=== PATIENT | female | born 1950 | race Caucasian/White ===

== ENCOUNTER → 2017-02-04 | Outpatient (CLI) | payer MEDICARE ==
[2016-02-13 15:09] VITALS: BP 118/84
[~2017-02-04] MED LIST: ATOR10TA60 PO; CARV12.5 PO; CELE200C PO; CITA20TA5 PO; FERR-36 PO; HYDR200T PO; LOSA100T6 PO; NAPR500T3 PO; NITR100C PO; PANT40TA5 PO; SUCR1TAB PO; WARF-78 PO
--- NOTE | 2017-02-04 14:35 | KCIC ---
MR of the left shoulder Indication: Left shoulder pain. Adjacent capsulitis. Pain for over one year. No known injury. Technique: Standard multiplanar sequences are obtained. Findings: Mild motion degradation despite repeating sequences. Acromioclavicular joint: Mild degenerative spurring. Rotator cuff: Full thickness tear of the anterior supraspinatus tendon measures about 15 mm AP diameter with 15 mm retraction. Partial tearing through the undersurface of the posterior supraspinatus through infraspinatus tendon. Partial subscapularis tendon tear. Mild fluid in the subdeltoid bursa. Fluid: Mild glenohumeral joint effusion. Labrum: Faint signal within the superior labrum but no clear-cut labral detachment. Articular cartilage: No acute cartilage defect or advanced DJD. Biceps tendon: Tendinosis with mild partial tearing. Bones: No lesion or acute fracture. Soft tissue: No acute findings. Impression: 1. Moderate full-thickness retracted supraspinatus tendon tear. Partial subscapularis tendon tear. 2. Biceps tendinosis. 3. Superior labral degeneration. Electronically signed by: Arnav Godinez MD (02/04/2017 2:32 PM)
== END | disposition home or self-care (01) ==
LOC: KCIC MRI 12:59
PROVIDERS: ATTEND Internal Medicine Rheumatology
DX: M75.02 Adhesive capsulitis of left shoulder (principal)
CPT/HCPCS: 73221

== ENCOUNTER → 2017-06-14 | Outpatient (CLI) | payer MEDICARE ==
[2016-02-13 15:09] VITALS: BP 118/84
[~2017-06-14] MED LIST changes: -NAPR500T3 PO; +NAPR500T4 PO
--- NOTE | 2017-06-14 14:45 | RAD ---
DATE: 06/14/2017 EXAM: DIGITAL SCREEN BILAT W/CAD HISTORY: History of benign right breast biopsy. Astigmatic screening mammogram. COMPARISON: Prior mammogram from 06/02/2015 This study was interpreted with the benefit of Computerized Aided Detection (CAD). The breast parenchyma shows scattered fibroglandular densities. Breast parenchyma level B. FINDINGS: Bilateral CC and MLO views of the breasts were performed. Right breast: There is a focal asymmetry in the upper outer right breast at posterior depth. Recommend additional imaging to include spot compression CC and MLO views of the right breast as well as possible ultrasound. Recommend placing scar marker if a scar is present. Left breast: There are no suspicious microcalcifications, masses or areas of architectural distortion. Left mammogram stable from prior mammogram. IMPRESSION: 1. Incomplete right mammogram. Additional views are recommended, as detailed above. 2. Negative left mammogram. BI-RADS CATEGORY: 0 INCOMPLETE: NEEDS ADDITIONAL IMAGING EVALUATION AND/OR PRIOR MAMMOGRAMS FOR COMPARISON. RECOMMENDED FOLLOW-UP: ADD ADDITIONAL IMAGING PQRS compliance statement: Mammography is a sensitive method for finding small breast cancers, but it does not detect them all and is not a substitute for careful clinical examination. A negative mammogram does not negate a clinically suspicious finding and should not result in delay in biopsying a clinically suspicious abnormality. "Our facility is accredited by the [employer] Mammography Program."
== END | disposition home or self-care (01) ==
LOC: MAMMO 14:14
PROVIDERS: ATTEND Internal Medicine
DX: Z12.31 Encounter for screening mammogram for malignant neoplasm of breast (principal)
CPT/HCPCS: G0202; 77067

== ENCOUNTER → 2017-06-21 | Outpatient (CLI) | payer MEDICARE ==
[2016-02-13 15:09] VITALS: BP 118/84
--- NOTE | 2017-06-21 11:43 | RAD ---
DATE: 06/21/2017 EXAM: DIGITAL DIAGNOSTIC RT, BREAST RIGHT HISTORY: Suspicious screening study COMPARISON: 06/14/2017 This study was interpreted with the benefit of Computerized Aided Detection (CAD). The breast parenchyma shows scattered fibroglandular densities. Breast parenchyma level B. FINDINGS: Reported there has been chest surgery since the old exam of 06/02/2015 with surgical scars projected over the upper outer quadrant of the right breast. Skin markers were placed along the areas of scarring prior to obtaining additional views. Spot compression and straight medial lateral views were obtained today. They confirm the presence of a ill-defined superficial opacity in the upper outer quadrant near the most posterior area of scarring. This small density measures approximately 1 cm. No suspicious microcalcifications are seen in this region. Right breast ultrasound, 06/21/2017: A targeted ultrasound of the area of clinical concern was performed at the 10:00 location, approximately 9 cm from the nipple. Just deep to the skin surface there is an ill-defined area of increased echogenicity measuring approximately 5 x 6 x 8 mm. There is no significant posterior acoustic enhancement or shadowing. This is not the typical appearance of a breast malignancy. In view of the history of recent surgery in this region, this most likely represents a scar or area of fat necrosis. No other abnormality is seen in this region. IMPRESSION: Small mammographic and sonographic abnormality related to an area of previous surgery, most likely representing scarring or fat necrosis. Clinical surveillance as well as mammographic and sonographic follow-up in 4-6 months is suggested to confirm stability. BI-RADS CATEGORY: 3 PROBABLY BENIGN FINDING(S)-SHORT INTERVAL FOLLOW-UP SUGGESTED RECOMMENDED FOLLOW-UP: 6M 6 MONTH FOLLOW-UP PQRS compliance statement: Patient information was entered into a reminder system with a target due date for the next mammogram. Mammography is a sensitive method for finding small breast cancers, but it does not detect them all and is not a substitute for careful clinical examination. A negative mammogram does not negate a clinically suspicious finding and should not result in delay in biopsying a clinically suspicious abnormality. "Our facility is accredited by the [employer] Mammography Program."
== END | disposition home or self-care (01) ==
LOC: MAMMO 10:17
PROVIDERS: ATTEND Internal Medicine
DX: R92.8 Other abnormal and inconclusive findings on diagnostic imaging of breast (principal)
CPT/HCPCS: 76641; G0206; 77065

== ENCOUNTER → 2018-03-15 | Outpatient (CLI) | payer MEDICARE | END | disposition home or self-care (01) | LOC: MAMMO 08:55 | DX: R92.8 Other abnormal and inconclusive findings on diagnostic imaging of breast (principal); I10 Essential (primary) hypertension; E78.2 Mixed hyperlipidemia; E11.9 Type 2 diabetes mellitus without complications; Z96.653 Presence of artificial knee joint, bilateral; Z87.11 Personal history of peptic ulcer disease; Z90.89 Acquired absence of other organs | CPT/HCPCS: 76641; 77065; G0279 ==

== ENCOUNTER → 2019-03-21 | Outpatient (CLI) | payer MEDICARE ==
[2016-02-13 15:09] VITALS: BP 118/84
[~2019-03-21] MED LIST changes: -CITA20TA5 PO; +CITA20TA6 PO; -HYDR200T PO; +HYDR200T71 PO; +LOSA100T14 PO; -LOSA100T6 PO; +NAPR-514 PO; -NAPR500T4 PO; -PANT40TA5 PO; +PANT40TA77 PO
--- NOTE | 2019-03-21 10:21 | RAD ---
DATE: March 21, 2019 EXAM: MAMMO [facility] HISTORY: Right breast nodules. COMPARISON: June 14, 2017 and March 15, 2018. This study was interpreted with the benefit of Computerized Aided Detection (CAD). 2-D digital mammographic views of both breasts were performed in the CC and MLO projections. 3-D digital tomosynthesis images of both breasts were performed in the CC and MLO projections and reviewed on a computer workstation. FINDINGS: Breast Density: SCATTERED The breast parenchyma shows scattered fibroglandular densities. Breast parenchyma level B.. There are no dominant suspicious masses, suspicious microcalcifications or evidence of architectural distortion. Nodular densities of the upper outer quadrant of the right breast are stable. There is a small skin mole just inferior to the nipple of the left breast. IMPRESSION: Benign findings. No mammographic indicators for malignancy. BI-RADS CATEGORY: 2 BENIGN FINDING RECOMMENDED FOLLOW-UP: 12M 12 MONTH FOLLOW-UP PQRS compliance statement: Patient information was entered into a reminder system with a target due date March 22, 2020 for the next mammogram. Mammography is a sensitive method for finding small breast cancers, but it does not detect them all and is not a substitute for careful clinical examination. A negative mammogram does not negate a clinically suspicious finding and should not result in delay in biopsying a clinically suspicious abnormality. "Our facility is accredited by the [employer] Mammography Program." The patient's breast density may affect the ability of mammography to detect breast cancer. There are 4 categories of breast density, A, B, C and D. Breast density A means that most of the breast tissue is replaced with adipose tissue and therefore is not dense. Breast density B means that the breast tissue is mildly dense and scattered. Breast density C means that the breast tissue is heterogeneously dense. Breast density D means that the breast tissue is very dense. Breast densities especially C and D may decrease the sensitivity of mammography to detect breast cancer. Therefore, the patient may benefit from 3-D breast mammography (3D breast tomography) as a part of their screening mammogram. Insurance may or may not pay for this additional imaging. The patient's breast density based on today's mammogram is category B.
== END | disposition home or self-care (01) ==
LOC: MAMMO 08:55
PROVIDERS: ATTEND Internal Medicine Hematology & Oncology
DX: R92.8 Other abnormal and inconclusive findings on diagnostic imaging of breast (principal)
CPT/HCPCS: 77066; G0279; 77062

== ENCOUNTER → 2019-08-07 | Outpatient (CLI) | payer MEDICARE ==
[2016-02-13 15:09] VITALS: BP 118/84
--- NOTE | 2019-08-07 15:44 | KCIC ---
Renal ultrasound 08/07/2019 INDICATION: History of renal mass COMPARISON STUDY: None available Discussion: Ultrasound evaluation of the kidneys was performed. Static images are submitted to PACS. Right kidney measures 10.1 x 4.0 x 4.0 cm. In the mid pole the right kidney is a small cyst measuring 1.1 cm. The left kidney measures 10.1 x 4.2 x 4.4 cm. Lobulated contour is normal in seen involving the left kidney. A definitive focal mass is not identified by ultrasound. No hydronephrosis, nephrolithiasis, or obstructive uropathy is seen involving either kidney IMPRESSION: 1. 1.1 cm cyst, right kidney 2. Lobulated appearance of left kidney without definitive focal mass. 3.Recommend correlation with comparison exams available, as none are currently available for review. If concern for renal mass persists, consider contrast-enhanced CT for further evaluation. Electronically signed by: Michael Barrera MD (08/07/2019 3:41 PM) [id number]
== END | disposition home or self-care (01) ==
LOC: KCIC US 11:01
PROVIDERS: ATTEND Family Medicine
DX: N28.1 Cyst of kidney, acquired (principal); I10 Essential (primary) hypertension; E11.9 Type 2 diabetes mellitus without complications; E78.00 Pure hypercholesterolemia, unspecified; M19.90 Unspecified osteoarthritis, unspecified site; Z87.891 Personal history of nicotine dependence; Z90.89 Acquired absence of other organs; Z98.51 Tubal ligation status
CPT/HCPCS: 76770

== ENCOUNTER → 2020-02-07 | Outpatient (CLI) | payer MEDICARE ==
[2016-02-13 15:09] VITALS: BP 118/84
[~2020-02-07] MED LIST changes: +CONTRAST GIVEN. MC PRN; +IOHEXOL 240 MG/ML 50ML VIAL. PO ONE; +IOHEXOL 300 MG/ML 100ML VIAL. IV ONE; -WARF-78 PO; +WARF5TAB2 PO
--- NOTE | 2020-02-07 10:06 | RAD ---
PQRS Compliance Statement: One or more of the following individualized dose reduction techniques were utilized for this examination: 1. Automated exposure control 2. Adjustment of the mA and/or kV according to patient size 3. Use of iterative reconstruction technique CT abdomen/pelvis with contrast 02/07/2020 8:30 AM INDICATION: Left lower quadrant abdominal pain COMPARISON: None available TECHNIQUE: Multiple axial CT images of the abdomen and pelvis were obtained after the intravenous administration of Isovue-370. Coronal and sagittal reformats are provided. FINDINGS: Lung bases are clear. Heart size is within normal limits. Small to moderate-sized hiatal hernia is present. Liver, spleen, bilateral adrenal glands, and pancreas are normal in appearance. Gallbladder is present without adjacent inflammatory changes. There is a large duodenal diverticulum measuring 4.6 x 4.2 cm involving the second portion of the duodenum. Abdominal aorta is normal in caliber with mild to moderate calcified atheromatous plaque. No pathologically enlarged lymph nodes are identified in abdomen and pelvis. There is no free fluid or free intraperitoneal air. Oral contrast was administered. Stomach is normal in appearance. Small bowel loops are normal in caliber. No bowel obstruction or inflammation. Mild colonic diverticulosis. The appendix is not definitively visualized. No pericecal inflammatory changes are identified. Kidneys are normal in appearance. No hydronephrosis or suspicious renal mass. No suspicious osseous abnormality is identified. Grade 1 anterolisthesis of L4 on L5 with severe degenerative facet arthropathy. IMPRESSION: No acute abnormality is identified in abdomen and pelvis. Small to moderate-sized hiatal hernia. No bowel obstruction or inflammation. Appendix is not definitively visualized. Grade 1 anterolisthesis of L4 on L5, likely secondary to degenerative facet arthropathy. Large duodenal diverticulum involving the second portion of the duodenum. Electronically signed by: Kimberley Chin MD (02/07/2020 10:03 AM) [facility]
== END | disposition home or self-care (01) ==
LOC: CT 07:26
PROVIDERS: ATTEND Family Medicine
DX: K57.30 Diverticulosis of large intestine without perforation or abscess without bleeding (principal); K44.9 Diaphragmatic hernia without obstruction or gangrene; K57.10 Diverticulosis of small intestine without perforation or abscess without bleeding; I70.0 Atherosclerosis of aorta; M47.896 Other spondylosis, lumbar region
CPT/HCPCS: 74177; Q9966; Q9967

== ENCOUNTER → 2020-10-15 | Outpatient (CLI) | payer MEDICARE ==
[2016-02-13 15:09] VITALS: BP 118/84
[~2020-10-15] MED LIST changes: -CONTRAST GIVEN. MC PRN; -IOHEXOL 240 MG/ML 50ML VIAL. PO ONE; -IOHEXOL 300 MG/ML 100ML VIAL. IV ONE
--- NOTE | 2020-10-15 17:02 | RAD ---
Bilateral lower extremity arterial duplex study to include bilateral ankle-brachial indices 10/15/2020 CLINICAL HISTORY: Bilateral leg cramping. TECHNIQUE: Systolic blood pressures of both arms and ankles were obtained. Ratios were generated bila terally for ankle-brachial indices. Using a combination of real-time ultrasound imaging and color-flow and pulse Doppler imaging techniques a real-time ultrasou nd examination of the major arterial structures of both lower extremities was performed. Multiple gena ges were obtained. FINDINGS: The right ankle brachial index is 1.2. The left ankle-brachial index is 1.2. These are norm al. Normal triphasic arterial waveforms are seen throughout the major arterial structures of both lower e xtremity with the exception of the left anterior tibial and dorsalis pedis arteries which are biphasi c. Very mild atheromatous/atherosclerotic plaque formation is seen scattered throughout the major art erial structures of both lower extremities. The peak systolic velocities taper normally. No hemodynam ically significant stenosis or area of occlusion is seen. IMPRESSION: 1. . Normal ABIs. 2. Very mild atheromatous/atherosclerotic plaque formation is seen involving the major arterial struc tures of both lower extremities. No hemodynamically significant stenosis or area of occlusion is seen . Electronically signed by: Philip Alegria MD (10/15/2020 5:00 PM) [id number]
== END ==
LOC: US 14:36
PROVIDERS: ATTEND Nurse Practitioner Gerontology
DX: R25.2 Cramp and spasm (principal); M79.604 Pain in right leg; M79.605 Pain in left leg
CPT/HCPCS: 93922; 93925

== ENCOUNTER → 2021-03-16 | Outpatient (CLI) | payer MEDICARE ==
[2016-02-13 15:09] VITALS: BP 118/84
--- NOTE | 2021-03-16 16:13 | RAD ---
BILATERAL SCREENING MAMMOGRAM, 3-D History: Routine screening. Comparison: Bilateral mammogram March 21, 2019 and back to June 14, 2017. Technique: MLO and CC digital tomosynthesis (3D) images obtained. Radiologist reviewed these images on dedicated workstation. Findings: Breast Tissue Density B : There are scattered areas of fibroglandular density. Arterial and nonarterial calcifications are redemonstrated. There are no dominant masses, suspicious microcalcifications or architectural distortion. IMPRESSION: No mammographic evidence of malignancy. Recommend routine screening. BI-RADS category 2: Benign findings. The images were reviewed with computer-aided detection. Patient information is entered into reminder system with a target due date for the next screening alie mogram. Mammography is the most sensitive method for finding small breast cancers, but it does not detect the m all and is not a substitute for careful clinical examination. A negative mammogram does not negate a clinically suspicious finding and should not result in delay in biopsying a clinically suspicious a bnormality. "Our facility is accredited by the [employer] Mammography Program." Electronically signed by: Pete Cerda MD (03/16/2021 4:11 PM) [id number]
== END ==
LOC: MAMMO 10:36
PROVIDERS: ATTEND Family Medicine
DX: Z12.31 Encounter for screening mammogram for malignant neoplasm of breast (principal)
CPT/HCPCS: 77063; 77067